=== PATIENT | female | born 1990 | race Caucasian/White ===

== ENCOUNTER 2017-05-22 12:25 | Emergency (ER) | payer MEDICAID ==
[~2017-05-22] VITALS: Ht 172.7 cm; Wt 119.8 kg
[~2017-05-22 12:25] MED LIST: IBUP-1222 PO
[2017-05-22 13:22] LABS: BLOOD UREA NITROGEN 6 mg/dL (7-18)
[2017-05-22 14:35] VITALS: BP 120/71
== END 2017-05-22 14:36 | disposition home or self-care (01) ==
LOC: ED 14:30
DX: O20.0 Threatened abortion (principal); Z3A.14 14 weeks gestation of pregnancy
CPT/HCPCS: 36415; 76805; 80048; 82040; 84702; 85025; 86901; 99285

== ENCOUNTER 2017-11-03 21:46 | Outpatient (CLI) | payer MEDICAID ==
[~2017-11-03] VITALS: Ht 172.7 cm; Wt 130.0 kg
[2017-11-03 23:11] LABS: AMNI OBC PASS; AMNISURE NEGATIVE (NEGATIVE)
== END 2017-11-03 23:32 | disposition home or self-care (01) ==
LOC: LDOP 21:46
PROVIDERS: ATTEND Student in an Organized Health Care Education/Training Program
DX: O42.92 Full-term premature rupture of membranes, unspecified as to length of time between rupture and onset of labor (principal); O99.333 Smoking (tobacco) complicating pregnancy, third trimester; F17.200 Nicotine dependence, unspecified, uncomplicated; Z3A.38 38 weeks gestation of pregnancy
CPT/HCPCS: 59025; 84112; 99211; G0463

== ENCOUNTER 2017-11-08 19:46 | Outpatient (CLI) | payer MEDICAID ==
[~2017-11-08] VITALS: Ht 172.7 cm; Wt 133.0 kg
== END 2017-11-08 21:00 | disposition home or self-care (01) ==
LOC: LDOP 19:46
PROVIDERS: ATTEND Student in an Organized Health Care Education/Training Program
DX: O42.92 Full-term premature rupture of membranes, unspecified as to length of time between rupture and onset of labor (principal); O99.333 Smoking (tobacco) complicating pregnancy, third trimester; F17.200 Nicotine dependence, unspecified, uncomplicated; Z3A.37 37 weeks gestation of pregnancy
CPT/HCPCS: 59025; 89060; 99211; G0463; Q0114

== ENCOUNTER 2017-11-11 13:17 | Inpatient (IN) | payer MEDICAID ==
[~2017-11-11] VITALS: Ht 172.7 cm; Wt 130.0 kg
[2017-11-11 13:22] VITALS: BP 129/79
[2017-11-11] MEDS ORDERED: OXYTOCIN 30U/ 0.9% NaCL 500ML 500 ML IV ONE (13:29)
[2017-11-11] MEDS ORDERED: D5%-LACTATED RINGERS 1,000 ML IV SCH (13:29)
[2017-11-11] MEDS ORDERED: TERBUTALINE 1 MG/ML, 1ML IVPush PRN (13:30)
[2017-11-11] MEDS ORDERED: FENTANYL PF 100 MCG/2ML IV PRN (13:30)
[2017-11-11] MEDS ORDERED: SODIUM CITRATE/CITRIC ACID 30 ML UDC PO PRN (13:30)
[2017-11-11] MEDS ORDERED: FENTANYL PF 100 MCG/2ML IVPush PRN (13:30)
[2017-11-11] MEDS ORDERED: ONDANSETRON 2MG/ML, 2ML IVPush PRN (13:30)
[2017-11-11] MEDS ORDERED: METOCLOPRAMIDE 5 MG/ML, 2ML IVPush PRN (13:30)
[2017-11-11] MEDS: LACTATED RINGERS 1,000 ML IV SCH ×3 (13:56→18:41)
[2017-11-11] MEDS ORDERED: PLEASE ENTER HEIGHT AND WEIGHT MC SCH (14:00)
[2017-11-11] MEDS ORDERED: OXYTOCIN 30U/ 0.9% NaCL 500ML 500 ML IV PRN (14:17)
[2017-11-11 14:20] LABS: HEMATOCRIT 35.5 % (34.6-47.8); HEMOGLOBIN 11.8 g/dL (11.7-16.4); WHITE BLOOD COUNT 9.9 x10^3/uL (3.4-10)
[2017-11-11] MEDS ORDERED: NEWBORN KIT ONE (14:22)
[2017-11-11] MEDS ORDERED: MISOPROSTOL 200 MCG TABLET ONE (14:22)
[2017-11-11] MEDS ORDERED: LIDOCAINE 1%, 20ML ONE (14:22)
[2017-11-11] MEDS ORDERED: OXYTOCIN 30U/ 0.9% NaCL 500ML 500 ML ONE ×2 (14:22→23:19)
[2017-11-11] MEDS ORDERED: BUPIVACAINE/PF 0.25% ONE (16:39)
[2017-11-11] MEDS ORDERED: FENTANYL/BUPIV./NS/PF 250 ML EPIDCONT ONE (16:40)
[2017-11-11] MEDS ORDERED: LIDOCAINE-MPF 2% ,5ML ONE (16:44)
[2017-11-11] MEDS ORDERED: LACTATED RINGERS 1,000 ML INTUTE SCH ×2 (21:00)
[2017-11-11] MEDS ORDERED: LACTATED RINGERS 1,000 ML INTUTE PRN (21:00)
[2017-11-11] MEDS ORDERED: OXYTOCIN 30U/ 0.9% NaCL 500ML 500 ML IV SCH (22:53)
[2017-11-11] MEDS ORDERED: CARBOPROST TROMETHAMINE 250 MCG/ML, 1ML IM PRN (23:00)
[2017-11-11] MEDS ORDERED: METOCLOPRAMIDE 5 MG/ML, 2ML IV PRN (23:00)
[2017-11-11] MEDS ORDERED: BISACODYL 10 MG SUPP PR PRN (23:00)
[2017-11-11] MEDS ORDERED: MISOPROSTOL 200 MCG TABLET PR PRN (23:00)
[2017-11-11] MEDS ORDERED: IBUPROFEN 800 MG TABLET PO PRN (23:00)
[2017-11-11] MEDS ORDERED: GLYCERIN ADULT SUPP PR PRN (23:00)
[2017-11-11] MEDS ORDERED: OXYcodone/APAP 5/325MG TABLET PO PRN ×2 (23:00)
[2017-11-11] MEDS ORDERED: ONDANSETRON 2MG/ML, 2ML IV PRN (23:00)
[2017-11-11] MEDS ORDERED: METHYLERGONOVINE 0.2 MG/ML IM PRN (23:00)
[2017-11-11] MEDS ORDERED: ACETAMINOPHEN 325 MG TABLET PO PRN (23:00)
[2017-11-11] MEDS ORDERED: DOCUSATE 100 MG CAPSULE PO PRN (23:00)
[2017-11-12] MEDS ORDERED: IBUPROFEN 600 MG TABLET ONE (00:59)
[2017-11-12] MEDS: IBUPROFEN 600 MG TABLET PO PRN ×3 (01:00→18:54)
[2017-11-12 02:15] VITALS: BP 120/77
[2017-11-12 06:22] LABS: HEMATOCRIT 31.6 % (34.6-47.8); HEMOGLOBIN 10.7 g/dL (11.7-16.4); WHITE BLOOD COUNT 8.9 x10^3/uL (3.4-10)
[2017-11-12 08:50] VITALS: BP 117/78
[2017-11-12] MEDS ORDERED: PRENATAL VIT/IRON/FA 1 EACH TABLET PO SCH ×2 (09:00→11:00)
[2017-11-12] MEDS ORDERED: OXYC-302 PO (18:07)
[2017-11-12] MEDS ORDERED: IBUP-1222 PO (18:07)
[2017-11-12 20:00] VITALS: BP 136/83
== END 2017-11-12 22:50 | disposition home or self-care (01) | DRG 775 ==
LOC: LDIP 13:17 → 2NE 11-12 01:11 → 2NW 11-12 06:52
PROVIDERS: ADMIT Student in an Organized Health Care Education/Training Program; ATTEND Student in an Organized Health Care Education/Training Program
PROC: 10E0XZZ Delivery of Products of Conception, External Approach (ICD-10-PCS; principal; 2017-11-11)
PROC: 10907ZC Drainage of Amniotic Fluid, Therapeutic from Products of Conception, Via Natural or Artificial Opening (ICD-10-PCS; 2017-11-11)
PROC: 3E0R3BZ Introduction of Anesthetic Agent into Spinal Canal, Percutaneous Approach (ICD-10-PCS; 2017-11-11)
PROC: 00HU33Z Insertion of Infusion Device into Spinal Canal, Percutaneous Approach (ICD-10-PCS; 2017-11-11)
PROC: 0HQ9XZZ Repair Perineum Skin, External Approach (ICD-10-PCS; 2017-11-11)
DX: O76 Abnormality in fetal heart rate and rhythm complicating labor and delivery (principal); O34.33 Maternal care for cervical incompetence, third trimester; Z68.41 Body mass index [BMI] 40.0-44.9, adult; E66.9 Obesity, unspecified; O99.214 Obesity complicating childbirth; O70.0 First degree perineal laceration during delivery; Z37.0 Single live birth; Z3A.39 39 weeks gestation of pregnancy; Z87.891 Personal history of nicotine dependence
CPT/HCPCS: 36415; 85025; 86850; 86900; J3490; J2590; J3010; J7120

== ENCOUNTER 2019-12-04 12:27 | Observation (INO) | payer OTHER, MEDICAID ==
[~2019-12-04] VITALS: Ht 172.7 cm; Wt 134.1 kg
[~2019-12-04 12:27] MED LIST changes: +OXYC-302 PO
[2019-12-04 12:53] LABS: MICROSCOPIC NOT IND
[2019-12-04 12:55] VITALS: BP 135/73
[2019-12-04] MEDS ORDERED: ONDANSETRON 2MG/ML, 2ML ONE (13:44)
[2019-12-04 13:48] LABS: CLOSTRIDIUM DIFFICILE ANTIGEN NEGATIVE; CLOSTRIDIUM DIFFICILE TOXIN NEGATIVE (Negative)
[2019-12-04] MEDS ORDERED: LOPERAMIDE 2 MG CAPSULE PO PRN (14:00)
[2019-12-04] MEDS ORDERED: ONDANSETRON 2MG/ML, 2ML IVPush PRN (14:00)
[2019-12-04] MEDS: LACTATED RINGERS 1,000 ML IV SCH ×3 (14:15→16:55)
[2019-12-04 14:26] LABS: BASOPHILS # (AUTO) 0.01 x10^3/uL (0-0.1); BASOPHILS % (AUTO) 0 % (0-1); EOSINOPHILS # (AUTO) 0.02 x10^3/uL (0-0.4); EOSINOPHILS % (AUTO) 0 % (1-7); LYMPHOCYTES # (AUTO) 0.53 x10^3/uL (1-3.4); LYMPHOCYTES % (AUTO) 6 % (22-44); MD NO; MEAN CORPUSCULAR HEMOGLOBIN 28.2 pg (27.0-34.8); MEAN CORPUSCULAR HGB CONC 33.4 g/dL (32.4-35.8); MEAN CORPUSCULAR VOLUME 84.6 fL (80-100); MEAN PLATELET VOLUME 8.1 fL (7.4-10.4); MONOCYTES # (AUTO) 0.19 x10^3/uL (0.2-0.8); MONOCYTES % (AUTO) 2 % (2-9); NEUTROPHILS # (AUTO) 8.24 x10^3/uL (1.8-6.8); NEUTROPHILS % (AUTO) 92 % (42-75); PLATELET COUNT 290 x10^3/uL (130-400); RED CELL DISTRIBUTION WIDTH 13.3 % (9.6-15.2)
[2019-12-04 14:37] LABS: ALANINE AMINOTRANSFERASE 34 U/L (12-78); ALBUMIN 2.8 g/dL (3.4-5.0); ANION GAP 10 mmol/L (5-15); CALCIUM 8.2 mg/dL (8.5-10.1); CHLORIDE 108 mmol/L (98-107); CREATININE 0.56 mg/dL (0.55-1.02)
[2019-12-04 14:39] LABS: ALKALINE PHOSPHATASE 79 U/L (45-117); BILIRUBIN,TOTAL 0.4 mg/dL (0.2-1.0); TOTAL PROTEIN 7.3 g/dL (6.4-8.2)
[2019-12-04] MEDS ORDERED: DIPHENHYDRAMINE 50 MG/ML, 1ML ONE (16:26)
[2019-12-04] MEDS ORDERED: METOCLOPRAMIDE 5 MG/ML, 2ML ONE (16:26)
[2019-12-04] MEDS ORDERED: METOCLOPRAMIDE 5 MG/ML, 2ML IVPush ONE (16:30)
[2019-12-04] MEDS ORDERED: DIPHENHYDRAMINE 50 MG/ML, 1ML IVPush ONE (16:30)
== END 2019-12-04 19:18 | disposition home or self-care (01) ==
LOC: LDOP 12:27 → LDIP 14:13 → UNDOADMOB 14:20
PROVIDERS: ADMIT Student in an Organized Health Care Education/Training Program; ATTEND Student in an Organized Health Care Education/Training Program
DX: O26.892 Other specified pregnancy related conditions, second trimester (principal); O21.2 Late vomiting of pregnancy; R10.9 Unspecified abdominal pain; R19.7 Diarrhea, unspecified; Z3A.24 24 weeks gestation of pregnancy
CPT/HCPCS: 36415; 80053; 81003; 83690; 85025; 87086; 87324; 96361; 96374; 96375; 99211; G0378; J1200; J2405; J2765; J7120; 96360; G0463

== ENCOUNTER 2020-02-26 11:35 | Outpatient (CLI) | payer OTHER, MEDICAID ==
[~2020-02-26] VITALS: Ht 172.7 cm; Wt 143.0 kg
[2020-02-26 12:30] LABS: BASOPHILS # (AUTO) 0.03 x10^3/uL (0-0.1); BASOPHILS % (AUTO) 0 % (0-1); EOSINOPHILS # (AUTO) 0.03 x10^3/uL (0-0.4); EOSINOPHILS % (AUTO) 0 % (1-7); LYMPHOCYTES # (AUTO) 1.66 x10^3/uL (1-3.4); LYMPHOCYTES % (AUTO) 20 % (22-44); MD NO; MEAN CORPUSCULAR HEMOGLOBIN 27.1 pg (27.0-34.8); MEAN CORPUSCULAR VOLUME 82.1 fL (80-100); MEAN PLATELET VOLUME 8.8 fL (7.4-10.4); MONOCYTES # (AUTO) 0.55 x10^3/uL (0.2-0.8); MONOCYTES % (AUTO) 7 % (2-9); NEUTROPHILS # (AUTO) 6.16 x10^3/uL (1.8-6.8); NEUTROPHILS % (AUTO) 73 % (42-75); PLATELET COUNT 295 x10^3/uL (130-400); RED CELL DISTRIBUTION WIDTH 14.2 % (9.6-15.2)
[2020-02-26 12:31] LABS: ALANINE AMINOTRANSFERASE 20 U/L (12-78); ALBUMIN 2.5 g/dL (3.4-5.0); ANION GAP 7 mmol/L (5-15); CALCIUM 8.9 mg/dL (8.5-10.1); CHLORIDE 110 mmol/L (98-107); CREATININE 0.61 mg/dL (0.55-1.02)
[2020-02-26 12:33] LABS: ALKALINE PHOSPHATASE 90 U/L (45-117); BILIRUBIN,TOTAL 0.2 mg/dL (0.2-1.0); TOTAL PROTEIN 7.1 g/dL (6.4-8.2)
[2020-02-26 12:43] LABS: MICROSCOPIC NOT IND
[2020-02-26 12:45] LABS: CREATININE,URINE RANDOM 76.8 mg/dL
[2020-02-26 12:47] VITALS: BP 153/85
[2020-02-26] MEDS ORDERED: PREN1TAB10 PO (13:28)
[2020-02-26] MEDS ORDERED: ACET-1600 PO (13:28)
[2020-02-26] MEDS ORDERED: INSU100I18 SQ (13:31)
== END 2020-02-26 13:51 | disposition home or self-care (01) ==
LOC: LDOP 11:35
PROVIDERS: ATTEND Student in an Organized Health Care Education/Training Program
DX: O16.3 Unspecified maternal hypertension, third trimester (principal); Z3A.36 36 weeks gestation of pregnancy
CPT/HCPCS: 36415; 59025; 80053; 81003; 82570; 84156; 84550; 85025; 99211; G0463

== ENCOUNTER 2020-02-27 15:27 | Inpatient (IN) | payer OTHER, MEDICAID ==
[~2020-02-27] VITALS: Ht 172.7 cm; Wt 147.0 kg
[~2020-02-27 15:27] MED LIST changes: +ACET-1600 PO; +INSU100I18 SQ; +PREN1TAB10 PO
[2020-02-27 16:00] VITALS: BP 148/84
[2020-02-27 16:38] LABS: BASOPHILS # (AUTO) 0.03 x10^3/uL (0-0.1); BASOPHILS % (AUTO) 0 % (0-1); EOSINOPHILS # (AUTO) 0.03 x10^3/uL (0-0.4); EOSINOPHILS % (AUTO) 0 % (1-7); LYMPHOCYTES # (AUTO) 1.73 x10^3/uL (1-3.4); LYMPHOCYTES % (AUTO) 22 % (22-44); MD NO; MEAN CORPUSCULAR HEMOGLOBIN 26.9 pg (27.0-34.8); MEAN CORPUSCULAR HGB CONC 32.9 g/dL (32.4-35.8); MEAN CORPUSCULAR VOLUME 81.6 fL (80-100); MEAN PLATELET VOLUME 8.9 fL (7.4-10.4); MONOCYTES # (AUTO) 0.55 x10^3/uL (0.2-0.8); MONOCYTES % (AUTO) 7 % (2-9); NEUTROPHILS # (AUTO) 5.48 x10^3/uL (1.8-6.8); NEUTROPHILS % (AUTO) 70 % (42-75); PLATELET COUNT 326 x10^3/uL (130-400); RED BLOOD COUNT 4.58 x10^6/uL (3.82-5.3); RED CELL DISTRIBUTION WIDTH 14.1 % (9.6-15.2)
[2020-02-27 16:49] LABS: ALANINE AMINOTRANSFERASE 22 U/L (12-78); ALBUMIN 2.4 g/dL (3.4-5.0); ANION GAP 9 mmol/L (5-15); BILIRUBIN, DIRECT < 0.1 mg/dL (0.1-0.2); CALCIUM 8.6 mg/dL (8.5-10.1); CHLORIDE 109 mmol/L (98-107); CREATININE 0.69 mg/dL (0.55-1.02)
[2020-02-27 16:51] LABS: MICROSCOPIC INDICATED
[2020-02-27 16:51] LABS: ALKALINE PHOSPHATASE 90 U/L (45-117); BILIRUBIN,TOTAL 0.3 mg/dL (0.2-1.0); TOTAL PROTEIN 6.9 g/dL (6.4-8.2)
[2020-02-27] MEDS ORDERED: LACTATED RINGERS 1,000 ML IV SCH ×2 (16:51→18:01)
[2020-02-27] MEDS ORDERED: MAGNESIUM SULF. PMX 20GM/500ML 500 ML IV SCH (16:51)
[2020-02-27] MEDS ORDERED: D5%-LACTATED RINGERS 1,000 ML IV SCH (16:51)
[2020-02-27] MEDS ORDERED: OXYTOCIN 30U/ 0.9% NaCL 500ML 500 ML IV ONE (16:51)
[2020-02-27] MEDS ORDERED: NEWBORN KIT ONE (16:59)
[2020-02-27] MEDS ORDERED: LIDOCAINE 1%, 20ML ONE (16:59)
[2020-02-27] MEDS ORDERED: MISOPROSTOL 200 MCG TABLET ONE (16:59)
[2020-02-27] MEDS ORDERED: OXYTOCIN 30U/ 0.9% NaCL 500ML 500 ML ONE (17:00)
[2020-02-27] MEDS ORDERED: PENICILLIN GK 5,000,000 UNITS in DEXTROSE 5% 100 ML IVPB ONE (17:00)
[2020-02-27] MEDS ORDERED: hydrALAzine 20 MG/ML, 1ML IVPush ONE (17:00)
[2020-02-27] MEDS ORDERED: LABETALOL 5MG/ML, 20ML IVPush PRN ×3 (17:00)
[2020-02-27] MEDS ORDERED: ONDANSETRON 2MG/ML, 2ML IVPush PRN (17:00)
[2020-02-27] MEDS ORDERED: FENTANYL PF 100 MCG/2ML IV PRN (17:00)
[2020-02-27] MEDS ORDERED: TERBUTALINE 1 MG/ML, 1ML IVPush PRN (17:00)
[2020-02-27] MEDS ORDERED: CALCIUM CARBONATE 500 MG TAB.CHEW PO PRN (17:00)
[2020-02-27] MEDS ORDERED: MAGNESIUM SULF. PMX 20GM/500ML 500 ML IV ONE (17:00)
[2020-02-27] MEDS ORDERED: METOCLOPRAMIDE 5 MG/ML, 2ML IVPush PRN (17:00)
[2020-02-27] MEDS ORDERED: FENTANYL PF 100 MCG/2ML IVPush PRN (17:00)
[2020-02-27] MEDS ORDERED: TERBUTALINE 1 MG/ML, 1ML SQ PRN (17:00)
[2020-02-27] MEDS ORDERED: MAGNESIUM SULFATE PMX 4GM/100M 100 ML IVPB ONE ×4 (17:00)
[2020-02-27] MEDS ORDERED: MAGNESIUM SULFATE PMX 2GM/50ML 50 ML IVPB ONE (17:00)
[2020-02-27] MEDS ORDERED: ALUMINUM/MAG/SIMETHICONE 30 ML UDC PO PRN (17:00)
[2020-02-27] MEDS ORDERED: FENTANYL/BUPIV./NS/PF 250 ML EPIDCONT SCH (18:01)
[2020-02-27] MEDS ORDERED: LACTATED RINGERS 1,000 ML IVBOLUS PRN (18:30)
[2020-02-27] MEDS ORDERED: FENTANYL PF 500 MCG, BUPIVACAINE/PF 0.5%, 30ML 62.5 ML in SODIUM CHLORIDE 0.9% 177.5 ML EPIDCONT SCH (18:30)
[2020-02-27] MEDS ORDERED: EPHEDRINE 50 MG/ML, 1ML IVPush PRN (18:30)
[2020-02-27 19:34] VITALS: BP 136/74
[2020-02-27] MEDS: PENICILLIN GK 2,500,000 UNITS in DEXTROSE 5% 100 ML IVPB SCH (22:03)
[2020-02-27] MEDS ORDERED: FENTANYL PF 100 MCG/2ML ONE ×2 (22:53→22:56)
[2020-02-27] MEDS ORDERED: BUPIVACAINE 0.25% ONE ×2 (22:54→22:56)
[2020-02-27] MEDS ORDERED: ACETAMINOPHEN 325 MG TABLET ONE (22:55)
[2020-02-27] MEDS ORDERED: FENTANYL/BUPIV./NS/PF 250 ML EPIDCONT ONE (22:56)
[2020-02-27] MEDS ORDERED: LIDOCAINE/PF 1.5%-EPI 1:200K, 30ML ONE (22:56)
[2020-02-28] MEDS ORDERED: OXYTOCIN 30U/ 0.9% NaCL 500ML 500 ML IV PRN (00:11)
[2020-02-28] MEDS: MAGNESIUM SULF. PMX 20GM/500ML 500 ML IV SCH ×4 (00:26→23:15)
[2020-02-28] MEDS: PENICILLIN GK 2,500,000 UNITS in DEXTROSE 5% 100 ML IVPB SCH (01:59)
[2020-02-28] MEDS ORDERED: NEWBORN KIT ONE (05:52)
[2020-02-28] MEDS: OXYTOCIN 30U/ 0.9% NaCL 500ML 500 ML IV SCH ×2 (06:24→16:24)
[2020-02-28] MEDS ORDERED: SIMETHICONE 80 MG CHEW TAB PO PRN (06:30)
[2020-02-28] MEDS ORDERED: MISOPROSTOL 200 MCG TABLET PR PRN (06:30)
[2020-02-28] MEDS ORDERED: ACETAMINOPHEN 325 MG TABLET PO PRN ×2 (06:30→09:30)
[2020-02-28] MEDS ORDERED: CALCIUM CARBONATE 500 MG TAB.CHEW PO PRN (06:30)
[2020-02-28] MEDS ORDERED: ONDANSETRON 2MG/ML, 2ML IV PRN (06:30)
[2020-02-28] MEDS ORDERED: OXYcodone/APAP 5/325MG TABLET PO PRN (06:30)
[2020-02-28] MEDS ORDERED: ACETAMINOPHEN 325 MG TABLET ONE (08:49)
[2020-02-28 09:08] VITALS: BP 139/77
[2020-02-28 14:40] LABS: MEAN CORPUSCULAR HEMOGLOBIN 27.1 pg (27.0-34.8); MEAN CORPUSCULAR HGB CONC 33.7 g/dL (32.4-35.8); MEAN CORPUSCULAR VOLUME 80.4 fL (80-100); MEAN PLATELET VOLUME 9.1 fL (7.4-10.4); PLATELET COUNT 292 x10^3/uL (130-400); RED BLOOD COUNT 4.31 x10^6/uL (3.82-5.3); RED CELL DISTRIBUTION WIDTH 13.7 % (9.6-15.2)
[2020-02-28 14:41] LABS: BASOPHILS # (AUTO) 0.02 x10^3/uL (0-0.1); BASOPHILS % (AUTO) 0 % (0-1); EOSINOPHILS # (AUTO) 0.04 x10^3/uL (0-0.4); EOSINOPHILS % (AUTO) 1 % (1-7); LYMPHOCYTES # (AUTO) 0.84 x10^3/uL (1-3.4); LYMPHOCYTES % (AUTO) 11 % (22-44); MONOCYTES % (AUTO) 5 % (2-9); NEUTROPHILS % (AUTO) 84 % (42-75)
[2020-02-28 14:42] LABS: MD SCAN
[2020-02-28] MEDS ORDERED: MAGNESIUM SULF. PMX 20GM/500ML 500 ML IV ONE (19:19)
[2020-02-28 19:45] VITALS: BP 139/65
[2020-02-28] MEDS ORDERED: IBUPROFEN 600 MG TABLET ONE (19:48)
[2020-02-28] MEDS: IBUPROFEN 600 MG TABLET PO PRN (19:52)
[2020-02-28] MEDS ORDERED: INSULIN REGULAR 100 UNITS/ML, 3ML VIAL SQ-INSULIN ONE (21:00)
[2020-02-29] MEDS: OXYTOCIN 30U/ 0.9% NaCL 500ML 500 ML IV SCH ×3 (02:24→19:48)
[2020-02-29 08:30] VITALS: BP 142/79
[2020-02-29] MEDS: PRENATAL VIT/IRON/FA 1 EACH TABLET PO SCH ×2 (09:00→10:59)
[2020-02-29] MEDS: MAGNESIUM SULF. PMX 20GM/500ML 500 ML IV SCH ×3 (09:15→19:48)
[2020-02-29] MEDS: DOCUSATE 100 MG CAPSULE PO PRN (10:59)
[2020-02-29] MEDS: LABETALOL 200 MG TABLET PO SCH ×2 (10:59→17:52)
[2020-02-29 14:00] VITALS: BP 141/79
[2020-02-29 17:16] VITALS: BP 136/84
[2020-02-29 20:00] VITALS: BP 149/96
[2020-02-29] MEDS: IBUPROFEN 600 MG TABLET PO PRN (22:28)
[2020-03-01 01:30] VITALS: BP 142/88
[2020-03-01 07:30] VITALS: BP 135/89
[2020-03-01] MEDS: DOCUSATE 100 MG CAPSULE PO PRN (07:30)
[2020-03-01] MEDS: PRENATAL VIT/IRON/FA 1 EACH TABLET PO SCH (07:30)
[2020-03-01] MEDS: LABETALOL 200 MG TABLET PO SCH (08:16)
[2020-03-01] MEDS: OXYTOCIN 30U/ 0.9% NaCL 500ML 500 ML IV SCH (08:24)
[2020-03-01] MEDS ORDERED: IBUP-1222 PO (12:10)
== END 2020-03-01 12:48 | disposition home or self-care (01) | DRG 806 ==
LOC: LDOP 15:27 → LDIP 17:01 → 2NE 02-28 16:00 → 2NW 02-29 06:54
PROVIDERS: ADMIT Student in an Organized Health Care Education/Training Program; ATTEND Student in an Organized Health Care Education/Training Program
PROC: 10E0XZZ Delivery of Products of Conception, External Approach (ICD-10-PCS; principal; 2020-02-28)
PROC: 3E0R3BZ Introduction of Anesthetic Agent into Spinal Canal, Percutaneous Approach (ICD-10-PCS; 2020-02-28)
PROC: 00HU33Z Insertion of Infusion Device into Spinal Canal, Percutaneous Approach (ICD-10-PCS; 2020-02-28)
DX: O24.424 Gestational diabetes mellitus in childbirth, insulin controlled (principal); O26.62 Liver and biliary tract disorders in childbirth; Z37.0 Single live birth; O14.14 Severe pre-eclampsia complicating childbirth; E66.01 Morbid (severe) obesity due to excess calories; K76.0 Fatty (change of) liver, not elsewhere classified; O69.81X0 Labor and delivery complicated by cord around neck, without compression, not applicable or unspecified; O99.214 Obesity complicating childbirth; O99.824 Streptococcus B carrier state complicating childbirth; Z3A.36 36 weeks gestation of pregnancy
CPT/HCPCS: 36415; J3490; 80053; 81001; 82248; 82570; 82962; 83735; 84156; 84550; 85025; 86592; 86850; 86900; 87808; G0378; J1815; J2540; J3010; J2590; J3475; J7120

== ENCOUNTER 2021-02-28 23:22 | Emergency (ER) | payer MEDICAID, OTHER ==
[~2021-02-28] VITALS: Ht 172.7 cm; Wt 137.0 kg
[~2021-02-28 23:22] MED LIST changes: -OXYC-302 PO; +OXYC1TAB14 PO
[2021-03-01 00:01] LABS: BASOPHILS % (AUTO) 1 % (0-1); EOSINOPHILS % (AUTO) 1 % (1-7); LYMPHOCYTES % (AUTO) 17 % (22-44); MEAN CORPUSCULAR HEMOGLOBIN 28.2 pg (27.0-34.8); MEAN CORPUSCULAR HGB CONC 33.6 g/dL (32.4-35.8); MEAN PLATELET VOLUME 8.2 fL (7.4-10.4); MONOCYTES % (AUTO) 6 % (2-9); NEUTROPHILS % (AUTO) 75 % (42-75); PLATELET COUNT 304 x10^3/uL (130-400); RED BLOOD COUNT 5.21 x10^6/uL (3.82-5.3)
[2021-03-01 00:03] LABS: MD NO
--- NOTE | 2021-03-01 00:07 | NUR ---
pt resting in er bed with family at pt side, pt a/o x4 with unlabored breathng. pt has c/o palpatations. pt on monitor with vss
[2021-03-01 00:12] LABS: ALANINE AMINOTRANSFERASE 91 U/L (12-78); ALBUMIN 4.1 g/dL (3.4-5.0); ANION GAP 6 mmol/L (5-15); CALCIUM 9.2 mg/dL (8.5-10.1); CHLORIDE 109 mmol/L (98-107)
[2021-03-01 00:23] LABS: ALKALINE PHOSPHATASE 73 U/L (45-117); BILIRUBIN,TOTAL 0.2 mg/dL (0.2-1.0); CREATININE 0.89 mg/dL (0.55-1.02); TOTAL PROTEIN 7.7 g/dL (6.4-8.2); TROPONIN I < 0.015 ng/mL (0.000-0.045)
[2021-03-01 00:52] VITALS: BP 137/85
== END 2021-03-01 00:54 | disposition home or self-care (01) ==
LOC: ED 23:52
DX: R00.2 Palpitations (principal); R00.0 Tachycardia, unspecified
CPT/HCPCS: 36415; 80053; 83735; 84443; 84484; 84703; 85025; 85379; 93005; 99284